=== PATIENT | male | born 1955 | race Caucasian/White ===

== ENCOUNTER 2020-12-02 18:55 | Emergency (ER) | payer OTHER ==
[2020-12-02 20:33] LABS: HEMOGLOBIN 12.7 gm/dl (14.0-17.5); RED BLOOD COUNT 4.26 M/UL (4.20-5.50); WHITE BLOOD COUNT 10.7 K/UL (4.5-11.0)
[2020-12-02 20:47] LABS: BUN/CREATININE RATIO 11 (0-10)
[2020-12-03] MEDS ORDERED: ZOFRAN ODT 4 MG4 MG PO (02:31)
[2020-12-03] MEDS ORDERED: LOSARTAN POTASS25 MG PO (02:31)
== END 2020-12-03 02:40 | disposition home or self-care (01) ==
LOC: ER1 18:55
PROVIDERS: Family Medicine
DX: M54.2 Cervicalgia (principal); M54.6 Pain in thoracic spine; R10.9 Unspecified abdominal pain; R10.817 Generalized abdominal tenderness; R07.9 Chest pain, unspecified; R19.7 Diarrhea, unspecified; I10 Essential (primary) hypertension; Z88.0 Allergy status to penicillin; Z88.8 Allergy status to other drugs, medicaments and biological substances
CPT/HCPCS: 70450; 71045; 72125; 80053; 80307; 81001; 82550; 82553; 83605; 83690; 83735; 83874; 83880; 84439; 84443; 84484; 85025; 85610; 87040; 93005; 96374; 96375; 99285; J2270; J2405; J7030; Q9967